=== PATIENT | female | born 1985 | race Caucasian/White ===

== ENCOUNTER 2023-07-18 09:26 | Outpatient (CLI) | payer MEDICARE, MEDICAID ==
--- NOTE | 2023-07-18 16:24 | Ultrasound Report ---
PROCEDURE: Pelvic w/Transvaginal INDICATIONS: PELVIC PAIN TECHNIQUE: Real-time scanning was performed of the pelvic organs, with image documentation. Additional endovagi nal scanning was necessary due to incomplete visualization of the adnexal and endometrial structures by transabdominal scanning. COMPARISON: None. FINDINGS: Uterus: Uterus is anteverted and normal in size at 6.6 x 2.9 x 3.4 cm. The myometrium is homogeneou s. The endometrium measures 2 mm in combined thickness. No abnormal peristaltic can be seen along t he ventral stripe. There is a 17 mm intramural fibroid seen involving the mid anterior uterus. Naboth dian cysts are incidentally noted. Ovaries: The right ovary measures 1.4 x 0.7 x 0.8 cm, with a calculated ovarian volume of 0.4 cc. T he left ovary is not seen. Less than 12 follicles can be seen involving the right ovary. No adnexal masses are seen. No cystic lesions measuring greater than 3 cm. Other: No pathologic free abdominal or pelvic fluid. IMPRESSION: 1.7 cm fibroid seen. Left ovary not seen, consistent with the given surgical history. Reviewed by: Aditya Hector MD on 07/18/2023 3:23 PM AAKASH Approved by: Aditya Hector MD on 07/18/2023 3:23 PM AAKASH Station ID: [id number]
== END 2023-07-18 09:27 | disposition home or self-care (01) ==
LOC: DI 09:26
PROVIDERS: ATTEND Nurse Practitioner
DX: R10.2 Pelvic and perineal pain (principal); D25.1 Intramural leiomyoma of uterus

== ENCOUNTER 2023-09-02 10:22 | Outpatient (CLI) | payer MEDICARE, MEDICAID ==
[2023-09-02 10:38] LABS: BASOPHILS % (AUTO) 0.5 %; EOSINOPHILS # (AUTO) 0.1 10^3/uL (0.0-0.7); EOSINOPHILS % (AUTO) 1.6 %; HCT - HEMATOCRIT 45.9 % (37.0-47.0); LYMPHOCYTES # (AUTO) 2.7 10^3/uL (1.5-3.5); LYMPHOCYTES % (AUTO) 35.5 %; MEAN CORPUSCULAR HEMOGLOBIN 29.2 pg (27.0-31.0); MEAN CORPUSCULAR HGB CONC 32.7 g/dL (32.0-36.0); MEAN CORPUSCULAR VOLUME 89.3 fL (81.0-99.0); MEAN PLATELET VOLUME 10.5 fL (7.9-10.8); MONOCYTES # (AUTO) 0.5 10^3/uL (0.0-1.0); MONOCYTES % (AUTO) 5.8 %; NEUTROPHILS # (AUTO) 4.3 10^3/uL (1.5-6.6); NEUTROPHILS % (AUTO) 56.1 %; PLT - PLATELET COUNT 162 10^3/uL (130-450); RED BLOOD COUNT 5.14 10^6/uL (4.20-5.40); RED CELL DISTRIBUTION WIDTH 13.3 % (12.0-15.0); WHITE BLOOD COUNT 7.7 x10^3/uL (4.8-10.8)
[2023-09-02 10:58] LABS: CHOLESTEROL 220 mg/dL; HDL CHOLESTEROL 44 mg/dL; LDL CHOLESTEROL,CALCULATED 148 mg/dL; LDL/HDL RATIO 3.4 (<4.4); TRIGLYCERIDES 140 mg/dL (48-352); VLDL CHOLESTEROL 28 mg/dL
[2023-09-02 10:59] LABS: ALBUMIN 4.4 g/dL (3.2-5.5); ALBUMIN/GLOBULIN RATIO 1.7 (1.0-2.2); BILIRUBIN,TOTAL 0.5 mg/dL (0.2-1.0); CALCIUM 9.2 mg/dL (8.5-10.3); CREATININE 0.7 mg/dL (0.6-1.3); POTASSIUM 4.1 mmol/L (3.5-4.5)
[2023-09-02 11:06] LABS: ESTIMATED AVERAGE GLUCOSE 103 mg/dL (70-100); HEMOGLOBIN A1c% 5.2 % (4.27-6.07)
[2023-09-02 11:17] LABS: THYROID STIMULATING HORMONE 1.74 uIU/mL (0.34-5.60)
[2023-09-02 11:23] LABS: PROLACTIN 8.37 ng/mL
[2023-09-03 07:09] LABS: ESTRADIOL 13.5 pg/mL (.)
[2023-09-03 16:08] LABS: FREE TESTOSTERONE(DIRECT) 2.9 pg/mL (0.0-4.2); SEX HORM BINDING GLOB SERUM 33.6 nmol/L (24.6-122.0)
== END 2023-09-02 10:23 | disposition home or self-care (01) ==
LOC: LAB 10:22
PROVIDERS: ATTEND Obstetrics & Gynecology
DX: E28.319 Asymptomatic premature menopause (principal); I73.9 Peripheral vascular disease, unspecified; F41.9 Anxiety disorder, unspecified; F32.A Depression, unspecified; R53.83 Other fatigue
CPT/HCPCS: 36415; 80053; 80061; 82172; 82670; 83001; 83036; 83525; 83721; 84146; 84270; 84402; 84403; 84443; 85025